=== PATIENT | male | born 1990 | race Two or more races ===

== ENCOUNTER 2017-01-23 21:06 | Emergency (ER) | payer BC, MEDICAID ==
[~2017-01-23] VITALS: Ht 177.8 cm; Wt 63.0 kg
[2017-01-23 22:49] VITALS: BP 141/82
[2017-01-23] MEDS ORDERED: KETOROLAC TROMETH 60MG/2ML VIAL IM ONE (23:30)
[2017-01-23] MEDS ORDERED: LIDOCAINE 1% HCL (LOCAL ANESTH.) INJ 20ML MDV IN ONE (23:30)
[2017-01-23] MEDS ORDERED: HYDROcodone-ACET 5/325MG TAB PO ONE (23:30)
== END 2017-01-23 23:50 | disposition home or self-care (01) ==
LOC: ER 21:06
DX: S41.012A Laceration without foreign body of left shoulder, initial encounter (principal); S41.032A Puncture wound without foreign body of left shoulder, initial encounter; F17.210 Nicotine dependence, cigarettes, uncomplicated; Y08.89XA Assault by other specified means, initial encounter; Y93.9 Activity, unspecified; Y92.89 Other specified places as the place of occurrence of the external cause; Y99.8 Other external cause status
CPT/HCPCS: 12002; 71020; 73030; 73130; 96372; 99284; J1885; J2001